=== PATIENT | male | born 1965 | race Caucasian/White ===

== ENCOUNTER 2018-06-12 09:14 | Day surgery (SDC) | payer OTHER ==
[2018-06-09 13:14] LABS: ALBUMIN 3.8 G/DL (3.4-5.0); ALKALINE PHOSPHATASE 72 IU/L (46-116); BLOOD UREA NITROGEN 19 MG/DL (7-18); BUN/CREATININE RATIO 21.3 (5.4-32.0); CALCIUM 8.6 MG/DL (8.5-10.1); CHLORIDE 102 MMOL/L (99-107); CREATININE 0.89 MG/DL (0.60-1.10); PRE OP ALT 45 U/L (30-65); PRE OP ANION GAP 8 (8-16); PRE OP AST 24 U/L (10-37); PRE OP BILIRUB, TOTAL 0.5 MG/DL (0.0-1.0); PRE OP GLUCOSE 97 MG/DL (70-104); PRE OP POTASSIUM 4.2 MMOL/L (3.4-5.1); PRE OP SODIUM 138 MMOL/L (135-145); TOTAL CARBON DIOXIDE 28.3 MMOL/L (24-32); TOTAL PROTEIN 7.8 G/DL (6.4-8.2); eGFR 89 ML/MIN
[2018-06-09 13:16] LABS: BASOPHILS # (AUTO) 0.1 X10'3 (0-0.2); BASOPHILS % (AUTO) 0.8 % (0-1); EOSINOPHILS # (AUTO) 0.1 X10'3 (0-0.9); EOSINOPHILS % (AUTO) 1.6 % (0-6); LYMPHOCYTES # (AUTO) 2.4 X10'3 (1.1-4.8); LYMPHOCYTES % (AUTO) 31.4 % (21-51); MEAN CORPUSCULAR HEMOGLOBIN 32.4 PG (27.0-31.0); MEAN CORPUSCULAR HGB CONC 33.7 g/dL (33.0-36.5); MEAN CORPUSCULAR VOLUME 96.4 FL (78-98); MEAN PLATELET VOLUME 9.4 FL (7.4-10.4); MONOCYTES # (AUTO) 0.8 X10'3 (0-0.9); MONOCYTES % (AUTO) 10.6 % (2-12); NEUTROPHILS # (AUTO) 4.2 X10'3 (1.8-7.7); NEUTROPHILS % (AUTO) 55.6 % (42-75); PRE OP HEMATOCRIT 47.7 % (42.0-52.0); PRE OP HEMOGLOBIN 16.1 g/dL (14.0-17.9); PRE OP PLATELET COUNT 242 X10'3 (140-440); RED BLOOD COUNT 4.95 X10'6 (4.70-6.10); RED CELL DISTRIBUTION WIDTH 13.1 % (11.5-14.5)
[~2018-06-12] VITALS: Ht 177.8 cm; Wt 122.5 kg
[2018-06-12] VITALS (12 sets, daily range): BP systolic 116–142; BP diastolic 67–101
[~2018-06-12 09:14] MED LIST: IBUP-1984 PO; OMEP40CA37 PO; VANCOMYCIN INJ 1000 MG in NORMAL SALINE 250ml IV.SOLN IV ONE; ceFAZolin inj. 3,000 MG in normal saline 100ml IV soln 100 ML IV ONE; cefazolin/dext.iso 2gm/50ml 50 ML IV ONE; famotidine 20mg tablet PO ONE; ringers solution, lacted 1,000 ML IV SCH; vancomycin inj 1,500 MG in normal saline 300ml IV soln IV ONE
[2018-06-12] MEDS ORDERED: BUPIVAcaine/PF 2.5mg/ml (0.25%) 10ml vial ONE (09:20)
[2018-06-12] MEDS ORDERED: cloNIDine hcl/PF 100mcg/ml inj ONE (09:48)
[2018-06-12] MEDS ORDERED: propofol inj 20 ML IV ONE (09:52)
[2018-06-12] MEDS ORDERED: LIDOcaine 2% (20mg/ml) 5ml vial ONE (09:52)
[2018-06-12] MEDS ORDERED: rocuronium 10mg/ml inj IV ONE (09:52)
[2018-06-12] MEDS ORDERED: fentaNYL /PF 50mcg/ml 5ml ampule ONE (09:53)
[2018-06-12] MEDS ORDERED: MIDAZolam 5mg/5ml vial ONE (09:53)
[2018-06-12] MEDS ORDERED: sevoflurane 250ml liquid IH ONE (09:56)
[2018-06-12] MEDS ORDERED: ROPIVAcaine 0.5% (5mg/ml) 30ml vial ONE (09:57)
[2018-06-12] MEDS ORDERED: ringers solution, lacted 1,000 ML IV SCH (10:55)
[2018-06-12] MEDS ORDERED: morphine 4 MG/ML inj SYRINge IV PRN ×2 (10:55)
[2018-06-12] MEDS ORDERED: proCHLORperazine 10 MG/2 ml inj IV PRN (10:55)
[2018-06-12] MEDS ORDERED: ondansetron/PF 4mg/2ml inj IV PRN (10:55)
[2018-06-12] MEDS ORDERED: meperidine/PF 25mg/ml syringe IV PRN ×3 (10:55)
[2018-06-12] MEDS ORDERED: dexamethasone sod phosphate 4mg/ml inj. ONE (11:45)
[2018-06-12] MEDS ORDERED: glycopyrrolate 0.2mg/ml inj ONE (11:45)
[2018-06-12] MEDS ORDERED: ondansetron/PF 4mg/2ml inj ONE (11:45)
[2018-06-12] MEDS ORDERED: neostigmine methylsulfate 1 MG/ML 10ml vial ONE (11:45)
[2018-06-12] MEDS ORDERED: ceFAZolin 1000mg inj ONE (11:53)
--- NOTE | 2018-06-12 12:03 | NUR ---
Received from OR via [facility], accompanied by Anesthesiologist DR LIRA and report given by Anesthesiologist. PT DROWSY, DENIES PAIN, RIGHT ANKLE W/ROSINA WRAP COVERING SHARON CONTRERAS. Addendum: 06/12/18 at 1241 by Gale Byrd RN Amended: Links added.
[2018-06-12] MEDS ORDERED: labetalol 20mg/4ml (5mg/ml) syringe IV ONE ×2 (12:14→12:15)
[2018-06-12] MEDS ORDERED: HYDROcodone/acetaminophen 10/325mg tab PO ONE (13:15)
== END 2018-06-12 14:03 | disposition home or self-care (01) ==
LOC: PAS 09:14
PROVIDERS: ATTEND Orthopaedic Surgery
DX: T84.84XA Pain due to internal orthopedic prosthetic devices, implants and grafts, initial encounter (principal); S86.311A Strain of muscle(s) and tendon(s) of peroneal muscle group at lower leg level, right leg, initial encounter; M65.871 Other synovitis and tenosynovitis, right ankle and foot; K21.9 Gastro-esophageal reflux disease without esophagitis; E66.01 Morbid (severe) obesity due to excess calories; Z68.36 Body mass index [BMI] 36.0-36.9, adult; Z79.899 Other long term (current) drug therapy; Z72.89 Other problems related to lifestyle; Z87.891 Personal history of nicotine dependence; Z96.661 Presence of right artificial ankle joint; Y83.8 Other surgical procedures as the cause of abnormal reaction of the patient, or of later complication, without mention of misadventure at the time of the procedure; Y92.89 Other specified places as the place of occurrence of the external cause; X58.XXXA Exposure to other specified factors, initial encounter; Y93.89 Activity, other specified; Y99.8 Other external cause status
CPT/HCPCS: 20680; 28200; 36415; 80053; 82948; 85025; 93005; A6449; C1713; J0690; J0735; J1100; J2001; J2175; J2250; J2405; J2704; J2710; J3010; J3370; J3490; J7120; A6250; A7000; J2795; J7030